=== PATIENT | male | born 1965 | race Caucasian/White ===

== ENCOUNTER 2017-05-25 22:12 | Emergency (ER) | payer BC ==
--- NOTE | 2017-05-25 22:26 | ED ---
General Adult HPI - General Stated complaint: Chest Pain Time Seen by Provider: 05/25/17 22:18 Source: RN notes reviewed, old records reviewed - History of Present Illness Initial comments: This is a 52-year-old here for evaluation. This patient presents for evaluation regarding chest pain. Patient has no significant risk factors for heart disease does have high cholesterol, does drink daily, but denies history of smoking no high blood pressure and high cholesterol. Patient states the chest pain is been consistent throughout the day. No shortness of breath or diaphoresis. No modifying factors or symptoms. He has had this pain before usually run away. This pain site is been pretty consistent. Patient denies fever cough or congestion again at this point his pain seems to be subsiding. Patient took no Tums or anything for pain at home. Patient does admit to drinking alcohol tonight. Patient states his the pain may be better sometimes if he doesn't eat or drink something. Patient states he has had recent or prior cardiac evaluation maybe for 5 years ago including a stress test which was normal - Related Data Allergies Allergy/AdvReac Type Severity Reaction Status Date / Time No Known Allergies Allergy Verified 05/25/17 22:31 Review of Systems ROS Statement: Those systems with pertinent positive or pertinent negative responses have been documented in the HPI. ROS Other: All systems not noted in ROS Statement are negative. General Exam General appearance: alert, in no apparent distress Head exam: Present: atraumatic, normocephalic, normal inspection Eye exam: Present: normal appearance, PERRL, EOMI. Absent: scleral icterus, conjunctival injection, periorbital swelling ENT exam: Present: normal exam, mucous membranes moist Neck exam: Present: normal inspection. Absent: tenderness, meningismus, lymphadenopathy Respiratory exam: Present: normal lung sounds bilaterally. Absent: respiratory distress, wheezes, rales, rhonchi, stridor Cardiovascular Exam: Present: regular rate, normal rhythm, normal heart sounds. Absent: systolic murmur, diastolic murmur, rubs, gallop, clicks GI/Abdominal exam: Present: soft, normal bowel sounds. Absent: distended, tenderness, guarding, rebound, rigid Extremities exam: Present: normal inspection, full ROM, normal capillary refill. Absent: tenderness, pedal edema, joint swelling, calf tenderness Back exam: Present: normal inspection Neurological exam: Present: alert, oriented X3, CN II-XII intact Psychiatric exam: Present: normal affect, normal mood Skin exam: Present: warm, dry, intact, normal color. Absent: rash Course Vital Signs 05/25/17 05/26/17 22:25 00:32 Temperature 97.3 F L Pulse Rate 76 Respiratory 16 Rate Blood Pressure 118/66 O2 Sat by Pulse 97 Oximetry - Reevaluation(s) Reevaluation #1: 05/26/17 00:39 Patient is without chest pain at this time, he was and did have pain resolved with GI cocktail Reevaluation #2: 05/26/17 00:39 Did speak with patient regarding low cardiac risk and need for further evaluation by cardiology. Decision made to do this on an outpatient basis EKG Findings - EKG Comments: EKG Findings:: EKG shows normal sinus rhythm rate of 83, ME 144, QRS 82, QTC 439 Medical Decision Making - Lab Data Result diagrams: 05/25/17 22:34 05/25/17 22:34 Lab Results 05/25/17 05/25/17 05/25/17 Range/Units 22:34 22:34 22:34 WBC 7.9 (3.8-10.6) k/uL RBC 4.50 (4.30-5.90) m/uL Hgb 14.1 (13.0-17.5) gm/dL Hct 42.9 (39.0-53.0) % MCV 95.5 (80.0-100.0) fL MCH 31.3 (25.0-35.0) pg MCHC 32.8 (31.0-37.0) g/dL RDW 13.5 (11.5-15.5) % Plt Count 231 (150-450) k/uL Neutrophils % 60 % Lymphocytes % 27 % Monocytes % 7 % Eosinophils % 3 % Basophils % 1 % Neutrophils # 4.7 (1.3-7.7) k/uL Lymphocytes # 2.1 (1.0-4.8) k/uL Monocytes # 0.5 (0-1.0) k/uL Eosinophils # 0.2 (0-0.7) k/uL Basophils # 0.1 (0-0.2) k/uL PT (9.0-12.0) sec INR (<1.2) APTT (22.0-30.0) sec D-Dimer (<0.60) mg/L FEU Sodium 132 L (137-145) mmol/L Potassium 3.5 (3.5-5.1) mmol/L Chloride 96 L (98-107) mmol/L Carbon Dioxide 22 (22-30) mmol/L Anion Gap 14 mmol/L BUN 9 (9-20) mg/dL Creatinine 0.80 (0.66-1.25) mg/dL Est GFR (MDRD) Af Amer >60 (>60 ml/min/1.73 sqM) Est GFR (MDRD) Non-Af >60 (>60 ml/min/1.73 sqM) Glucose 97 (74-99) mg/dL Calcium 8.6 (8.4-10.2) mg/dL Magnesium 1.8 (1.6-2.3) mg/dL Total Bilirubin 0.3 (0.2-1.3) mg/dL AST 29 (17-59) U/L ALT 53 (21-72) U/L Alkaline Phosphatase 79 (38-126) U/L Total Creatine Kinase 91 (55-170) U/L CK-MB (CK-2) 0.9 (0.0-2.4) ng/mL CK-MB (CK-2) Rel Index 1.0 Troponin I <0.012 (0.000-0.034) ng/mL Total Protein 6.9 (6.3-8.2) g/dL Albumin 4.3 (3.5-5.0) g/dL Lipase 107 (23-300) U/L 05/25/17 Range/Units 22:34 WBC (3.8-10.6) k/uL RBC (4.30-5.90) m/uL Hgb (13.0-17.5) gm/dL Hct (39.0-53.0) % MCV (80.0-100.0) fL MCH (25.0-35.0) pg MCHC (31.0-37.0) g/dL RDW (11.5-15.5) % Plt Count (150-450) k/uL Neutrophils % % Lymphocytes % % Monocytes % % Eosinophils % % Basophils % % Neutrophils # (1.3-7.7) k/uL Lymphocytes # (1.0-4.8) k/uL Monocytes # (0-1.0) k/uL Eosinophils # (0-0.7) k/uL Basophils # (0-0.2) k/uL PT 9.7 (9.0-12.0) sec INR 0.9 (<1.2) APTT 25.2 (22.0-30.0) sec D-Dimer 0.29 (<0.60) mg/L FEU Sodium (137-145) mmol/L Potassium (3.5-5.1) mmol/L Chloride (98-107) mmol/L Carbon Dioxide (22-30) mmol/L Anion Gap mmol/L BUN (9-20) mg/dL Creatinine (0.66-1.25) mg/dL Est GFR (MDRD) Af Amer (>60 ml/min/1.73 sqM) Est GFR (MDRD) Non-Af (>60 ml/min/1.73 sqM) Glucose (74-99) mg/dL Calcium (8.4-10.2) mg/dL Magnesium (1.6-2.3) mg/dL Total Bilirubin (0.2-1.3) mg/dL AST (17-59) U/L ALT (21-72) U/L Alkaline Phosphatase (38-126) U/L Total Creatine Kinase (55-170) U/L CK-MB (CK-2) (0.0-2.4) ng/mL CK-MB (CK-2) Rel Index Troponin I (0.000-0.034) ng/mL Total Protein (6.3-8.2) g/dL Albumin (3.5-5.0) g/dL Lipase (23-300) U/L Disposition Clinical Impression: Chest pain, Gastritis Disposition: HOME SELF-CARE Condition: Good Instructions: Chest Pain (ED), Gastritis (ED) Referrals: Uli Cole MD [Primary Care Provider] - 1-2 days
[2017-05-25 22:49] LABS: Basophils # (A) 0.1 k/uL (0-0.2); Basophils % (A) 1 %; CH 32.2; CHCM 33.9; Eosinophils # (A) 0.2 k/uL (0-0.7); Eosinophils % (A) 3 %; HCT 42.9 % (39.0-53.0); HDW 2.02; HGB 14.1 gm/dL (13.0-17.5); Luc # (Auto) 0.26; Luc % (Auto) 3; Lymphocytes # (A) 2.1 k/uL (1.0-4.8); Lymphocytes % (A) 27 %; MCH 31.3 pg (25.0-35.0); MCHC 32.8 g/dL (31.0-37.0); MCV 95.5 fL (80.0-100.0); Mean Platelet Volume 7.5; Monocytes # (A) 0.5 k/uL (0-1.0); Monocytes % (A) 7 %; Neutrophils # (A) 4.7 k/uL (1.3-7.7); Neutrophils % (A) 60 %; RDW 13.5 % (11.5-15.5); WBC 7.9 k/uL (3.8-10.6); WBC (Perox) 7.93
--- NOTE | 2017-05-25 22:54 | XR ---
EXAM: XR Chest, 2 Views CLINICAL HISTORY: Reason: Chest Pain TECHNIQUE: Frontal and lateral views of the chest. COMPARISON: No relevant prior studies available. FINDINGS: Lungs: Bilateral hazy perihilar prominence with mild peribronchial cuffing raising concern for pulmonary vascular congestion/edema. Infectious processes would be included in the differential. Underlying lymphadenopathy cannot be definitively excluded. Bibasilar atelectasis and/or infiltrates. Pleural space: Unremarkable. No pneumothorax. Heart: Unremarkable. No cardiomegaly. Mediastinum: Unremarkable. Bones/joints: Degenerative changes are seen throughout the osseous structures. IMPRESSION: 1. Bilateral hazy perihilar prominence with mild peribronchial cuffing raising concern for pulmonary vascular congestion/edema. Infectious processes would be included in the differential. Underlying lymphadenopathy cannot be definitively excluded. 2. Bibasilar atelectasis and/or infiltrates.
[2017-05-25 22:58] LABS: ALT 53 U/L (21-72); AST 29 U/L (17-59); Alkaline Phosphatase 79 U/L (38-126); Anion Gap 14 mmol/L; Blood Urea Nitrogen 9 mg/dL (9-20); Calcium 8.6 mg/dL (8.4-10.2); Carbon Dioxide 22 mmol/L (22-30); Chloride 96 mmol/L (98-107); Glucose 97 mg/dL (74-99); Magnesium 1.8 mg/dL (1.6-2.3); Non-African American GFR(MDRD) >60 (>60 ml/min/1.73 sqM); Potassium 3.5 mmol/L (3.5-5.1); Sodium 132 mmol/L (137-145); Total Bilirubin 0.3 mg/dL (0.2-1.3); Total Protein 6.9 g/dL (6.3-8.2)
[2017-05-25] MEDS ORDERED: MAG HYDROX/AL HYDROX/SIMETH 30 ML, HYOSCYAMINE ELIXIR 10 ML, CIMETIDINE HCL 300 MG PO STA ×3 (23:05)
[2017-05-25 23:07] LABS: INR 0.9 (<1.2); Partial Thromboplastin Time 25.2 sec (22.0-30.0); Prothrombin Time 9.7 sec (9.0-12.0)
[2017-05-25 23:13] LABS: Creatine Kinase 91 U/L (55-170)
[2017-05-25] MEDS ORDERED: RX INFO: IV CONTRAST WAS GIVEN 1 EACH MISC MISCELLANE PRN (23:24)
[2017-05-25 23:25] LABS: Creatine Kinase MB 0.9 ng/mL (0.0-2.4); Troponin I <0.012 ng/mL (0.000-0.034)
[2017-05-26] MEDS ORDERED: MORPHINE SULFATE 4 MG/ML SYRINGE IVP PRN (00:30)
[2017-05-26] MEDS ORDERED: MORPHINE SULFATE 4 MG/ML SYRINGE IVP STA (00:30)
[2017-05-26 00:32] VITALS: RESP 16
--- NOTE | 2017-05-26 01:06 | CT ---
EXAM: CT Angiography Chest With Intravenous Contrast CLINICAL HISTORY: Nonspecific chest pain TECHNIQUE: Axial computed tomographic angiography images of the chest with intravenous contrast using pulmonary embolism protocol. CTDI is mGy and DLP is 419.50 mGy-cm. This CT exam was performed using one or more of the following dose reduction techniques: automated exposure control, adjustment of the mA and/or kV according to patient size, and/or use of iterative reconstruction technique. MIP reconstructed images were created and reviewed. COMPARISON: No relevant prior studies available. FINDINGS: Pulmonary arteries: The main pulmonary artery measures up to 3.4 cm, suggesting pulmonary hypertension. Evaluation of the pulmonary arterial vasculature is limited secondary to poor opacification as a result of bolus timing. Within this limitation, there is no evidence of a central pulmonary embolism. Cannot definitively exclude the possibility of small subsegmental pulmonary emboli. If there is further clinical concern, consider repeat CT of the chest versus nuclear medicine VQ scan. Aorta: No acute findings. No thoracic aortic aneurysm. Lungs: Minimal bronchial wall thickening is suspected, which may represent small airways inflammatory disease. There is a 0.7 cm nodule in the superior right lower lobe (series 5, image 58). Linear atelectasis is seen involving the left lower lobe. Pleural space: Unremarkable. No significant effusion. No pneumothorax. Heart: Mild vascular calcifications involving the coronary arteries. No cardiomegaly. No significant pericardial effusion. No evidence of RV dysfunction. Bones/joints: Sclerotic lesions are seen at the endplates of multiple midthoracic vertebral bodies, likely representing degenerative changes. No acute fracture. No dislocation. Soft tissues: Unremarkable. Lymph nodes: Mildly prominent mediastinal lymph nodes are seen, measuring up to 1 cm in short axis, of unknown significance. Liver: Hepatic steatosis is suggested. IMPRESSION: 1. Evaluation of the pulmonary arterial vasculature is limited secondary to poor opacification as a result of bolus timing. Within this limitations, no evidence of a central pulmonary embolism. Cannot definitively exclude the possibility of small subsegmental pulmonary emboli. If there is further clinical concern, consider short-term interval repeat CTA the chest versus nuclear medicine VQ scan. 2. Minimal bronchial wall thickening is suspected, which may represent small airways inflammatory disease. 3. Sclerotic lesions are seen at the endplates of multiple midthoracic vertebral bodies, likely representing degenerative changes. Nonemergent MRI of the thoracic spine may be obtained for further evaluation, if clinically indicated. 4. A 0.7 cm nodule in the superior right lower lobe. For low-risk patients recommend follow-up chest CT at 6-12 months. If unchanged consider an additional follow-up CT at 18-24 months. For high-risk patients (smoking history or other known risk factors) initial follow-up chest CT at 6-12 months and if unchanged, 18-24 months.
[2017-05-26 01:37] VITALS: BP 108/70; PULSE 78; TEMP 97.9
== END 2017-05-26 01:37 | disposition home or self-care (01) ==
LOC: EC 22:12
DX: K29.70 Gastritis, unspecified, without bleeding (principal); R07.9 Chest pain, unspecified
CPT/HCPCS: 99285; 36415; 93005; 85379; 80053; 82550; 82553; 83690; 83735; 84484; 85025; 85610; 85730; 71020; 71275; Q9967